=== PATIENT | female | born 1945 | race Two or more races ===

== ENCOUNTER 2024-02-08 13:59 | Inpatient (IN) | payer BC, MEDICARE, OTHER ==
[~2024-02-08] VITALS: Ht 167.6 cm; Wt 113.5 kg
[~2024-02-08 13:59] MED LIST: AMLO1TAB22 PO; ATOR10TA PO; CARV25TA55 PO; CLOB0.055 TOP; PANT-62 PO; SACU1TAB7 PO; [UNRECOGNIZED DRUG - CODE] PO
[2024-02-08 14:22] LABS: Basophils # (auto) 0 10 ^3/uL (0-0.2); Basophils % (auto) 0.3 % (0.0-2.0); Eosinophils # (auto) 0.1 10 ^3/uL (0-0.8); Eosinophils % (auto) 0.9 % (0.0-7.0); Hematocrit 41.5 % (36.0-46.0); Lymphocytes # (auto) 1.7 10 ^3/uL (0.4-5.4); Lymphocytes % (auto) 16.9 % (10.0-50.0); Mean Corpuscular Hemoglobin 32.1 pg (28.0-32.0); Mean Corpuscular Hgb Conc. 33.8 g/dL (32.0-36.0); Monocytes # (auto) 0.9 10 ^3/uL (0-1.3); Neutrophils # (auto) 7.4 10 ^3/uL (1.6-8.6); Neutrophils % (auto) 72.9 % (37.0-80.0); Platelet Count (auto) 343 10^3/uL (140-450); Red Blood Cells 4.36 10^6/uL (4.0-5.20); Red Cell Distribution Width 13.6 % (11.8-14.3); White Blood Cell 10.1 10^3/uL (4.4-10.8)
[2024-02-08] MEDS: ASPirin 81 mg TAB PO ONE (14:33)
[2024-02-08 14:38] LABS: Alanine Aminotransferase 12 U/L (7-40); Albumin 4.1 g/dL (3.2-4.8); Alkaline Phosphatase 86 U/L (46-116); Anion Gap 8 (5-15); Aspartate Aminotransferase 16 U/L (13-40); BUN/Creatinine Ratio 15.4 (10.0-20.0); Blood Urea Nitrogen 19 mg/dL (9-23); Calcium 9.7 mg/dL (8.7-10.4); Carbon Dioxide 26 mmol/L (20-31); Chloride 107 mmol/L (98-107); Glucose 169 mg/dL (74-106); Potassium 4.3 mmol/L (3.5-5.1); Sodium 141 mmol/L (136-145)
[2024-02-08 14:39] LABS: Total Protein 6.9 g/dL (5.7-8.2)
[2024-02-08 15:27] VITALS: PULSE 101; RESP 18; O2SAT 97
[2024-02-08] MEDS: ONDANSETRON HCL 4 MG/2 ML VIAL IV ONE (15:55)
[2024-02-08] MEDS: MORPHINE SULFATE INJ 2 MG/ml SYRG IV ONE (15:56)
[2024-02-08] MEDS: NITROGLYCERIN 0.2MG/HR TOPICAL PATCH TD ONE (17:35)
[2024-02-08] MEDS ORDERED: NITROGLYCERIN 0.4 MG SL TAB SL PRN (21:00)
[2024-02-08] MEDS: CARVEDILOL 12.5 MG TAB PO SCH (22:00)
[2024-02-08] MEDS: SACUBITRIL-VALSARTAN 24mg/26mg TAB PO SCH (22:00)
[2024-02-08] MEDS: ATORVASTATIN 20 MG TAB PO SCH (22:07)
[2024-02-08] MEDS: MORPHINE SULFATE INJ 2 MG/ml SYRG IV PRN (23:39)
[2024-02-09 06:17] LABS: Chloride 106 mmol/L (98-107); Potassium 4.8 mmol/L (3.5-5.1); Sodium 138 mmol/L (136-145)
[2024-02-09 06:18] LABS: Anion Gap 5 (5-15); Calcium 9.3 mg/dL (8.7-10.4); Carbon Dioxide 27 mmol/L (20-31)
[2024-02-09 06:23] LABS: BUN/Creatinine Ratio 14.2 (10.0-20.0); Blood Urea Nitrogen 17 mg/dL (9-23); Glucose 169 mg/dL (74-106)
[2024-02-09] MEDS ORDERED: DEXTROSE (50%) 50ML SYRG IV PRN (06:30)
[2024-02-09] MEDS: ACCU-CHEK COMFORT CURVE STRIP VI SCH (06:39)
[2024-02-09] MEDS: InsuLIN REG 1unit/0.01ml Soln (100units/ml) SC SCH (06:39)
[2024-02-09 08:54] VITALS: PULSE 94; RESP 25; O2SAT 98
[2024-02-09] MEDS: ASPirin 81 mg TAB PO SCH (09:47)
[2024-02-09] MEDS: ENOXAPARIN SOD 40 MG/0.4 ML SYRINGE SC SCH (09:49)
[2024-02-09] MEDS: amLODIPine BESYLATE 5 MG TAB PO SCH (09:50)
[2024-02-09] MEDS: ONDANSETRON HCL 4 MG/2 ML VIAL IV PRN (11:39)
[2024-02-09 20:00] VITALS: PULSE 86
[2024-02-09 21:00] VITALS: BP 114/58; PULSE 77; RESP 18; TEMP 98.8; O2SAT 96
[2024-02-09] MEDS: ACETAMINOPHEN 325 MG TAB PO PRN (23:09)
[2024-02-10] VITALS (7 sets, daily range): BP systolic 92–121; BP diastolic 42–67; PULSE 68–78; RESP 16–19; TEMP 98–98.4; O2SAT 94–98
[2024-02-10 07:29] LABS: Calcium 9.5 mg/dL (8.7-10.4); Chloride 103 mmol/L (98-107); Sodium 136 mmol/L (136-145)
[2024-02-10 07:30] LABS: Anion Gap 7 (5-15); Carbon Dioxide 26 mmol/L (20-31)
[2024-02-10 07:35] LABS: Glucose 179 mg/dL (74-106)
[2024-02-10 07:46] LABS: Blood Urea Nitrogen 18 mg/dL (9-23)
[2024-02-10] MEDS: BACLOFEN 10 MG TAB PO SCH (21:15)
[2024-02-11] VITALS (7 sets, daily range): BP systolic 101–140; BP diastolic 53–69; PULSE 72–86; RESP 16–20; TEMP 36.7; O2SAT 95–99
[2024-02-11 06:35] LABS: Chloride 105 mmol/L (98-107); Potassium 3.8 mmol/L (3.5-5.1); Sodium 137 mmol/L (136-145)
[2024-02-11 06:36] LABS: Anion Gap 6 (5-15); Calcium 9.2 mg/dL (8.7-10.4); Carbon Dioxide 26 mmol/L (20-31)
[2024-02-11 06:41] LABS: Blood Urea Nitrogen 14 mg/dL (9-23); Glucose 173 mg/dL (74-106)
[2024-02-11] MEDS: BACLOFEN 10 MG TAB PO ONE (09:08)
[2024-02-11] MEDS ORDERED: IBUP1TAB5 PO (16:46)
[2024-02-11] MEDS ORDERED: BACL20TA PO (16:46)
[2024-02-11] MEDS ORDERED: PANT40TA2 PO (16:46)
[2024-02-11] MEDS ORDERED: ASPI1TAB19 PO (16:47)
[2024-02-12] MEDS ORDERED: ASPirin 81 mg TAB PO SCH (10:00)
== END 2024-02-11 19:30 | disposition home or self-care (01) | DRG 193 ==
LOC: ER 14:12 → TELE 21:20 → TELE-WESTW 02-09 18:19
PROVIDERS: ADMIT Nurse Practitioner; ATTEND Student in an Organized Health Care Education/Training Program
DX: J12.9 Viral pneumonia, unspecified (principal); N17.0 Acute kidney failure with tubular necrosis; Z68.41 Body mass index [BMI] 40.0-44.9, adult; I50.22 Chronic systolic (congestive) heart failure; E11.9 Type 2 diabetes mellitus without complications; E66.9 Obesity, unspecified; M48.02 Spinal stenosis, cervical region; M47.812 Spondylosis without myelopathy or radiculopathy, cervical region; Z79.01 Long term (current) use of anticoagulants; Z91.148 Patient's other noncompliance with medication regimen for other reason; Z90.49 Acquired absence of other specified parts of digestive tract; Z79.4 Long term (current) use of insulin
CPT/HCPCS: 36415; 71046; 72125; 76705; 80048; 80053; 82962; 84484; 85025; 85379; 93005; 93306; 99291; G0378; J1815; J2405